=== PATIENT | female | born 1950 | race Caucasian/White ===

== ENCOUNTER 2017-05-10 15:28 | Emergency (ER) | payer SELFPAY ==
[2017-05-10 16:01] VITALS: BP 148/52
[2017-05-10] MEDS ORDERED: Naproxen TAB* 250 MG PO ONE (17:21)
--- NOTE | 2017-05-10 17:21 | RAD ---
Indication: RIGHT knee swelling and pain after trauma. Impacted the anterior knee sustained in fall. Pain behind the patella. Comparison: None. Technique: RIGHT knee: AP, tunnel, lateral, sunrise views. Report: Small suprapatellar joint effusion. No cortical disruption or suspicious trabecular irregularity to suggest fracture. Reference the AP view there is mild lateral joint space narrowing and subchondral sclerosis and cystic change at the lateral femoral condyle. Hypertrophic bone formation at the peripheral margin of the junction of the lateral metaphysis and lateral condyle is suspicious for sequela of previous lateral collateral ligament injury. Mild osteophytosis. Mild nonfocal soft tissue edema. IMPRESSION: Small joint effusion. No radiographic evidence for fracture. Kellgren and Jama grade 2 osteoarthritis most prominent at the lateral joint compartment.
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
== END 2017-05-10 18:02 | disposition home or self-care (01) ==
LOC: UCEAST 15:28
DX: M17.11 Unilateral primary osteoarthritis, right knee (principal); W10.9XXA Fall (on) (from) unspecified stairs and steps, initial encounter; Y93.9 Activity, unspecified; Y92.9 Unspecified place or not applicable; I10 Essential (primary) hypertension; M25.461 Effusion, right knee; E78.5 Hyperlipidemia, unspecified; F17.210 Nicotine dependence, cigarettes, uncomplicated
CPT/HCPCS: 99213; A9270-GY; G0463

== ENCOUNTER 2017-11-07 13:03 | Day surgery (SDC) | payer MEDICARE, OTHER ==
[~2017-11-07 13:03] MED LIST: Buffered Lidocaine 0.9% SYRIN* 5 ML/SYR SYRINGE INTRADERM ONE
[2017-11-07] MEDS ORDERED: ceFAZolin 2 GM PREMIX (*) 2 GM/50 ML BAG IVPB ONE (13:08)
[2017-11-07] MEDS ORDERED: Ropivacaine* 2 MG/ML 20 ML VIAL (0.2%) ONE (13:35)
[2017-11-07] MEDS ORDERED: Propofol* 10 MG/ML 20 ML BTL IV PUSH ONE (13:39)
[2017-11-07] MEDS ORDERED: Midazolam* 1 MG/ML 2 ML VIAL (2 MG) ONE ×2 (13:46→13:52)
[2017-11-07] MEDS ORDERED: Naloxone* 0.4 MG/ML 1 ML VIAL IV PRN (14:12)
[2017-11-07 14:58] VITALS: BP 149/85
--- NOTE | 2017-11-08 21:49 | OP ---
DATE OF OPERATION: 11/07/17 - [facility] DATE OF : 48 SURGEON: Joaquim Al MD MICROARRAY SPECIALIST: ANESTHESIOLOGIST: Dr. Johnson. ANESTHESIA: Local MAC. PRE-OP DIAGNOSIS: Symptomatic hardware right thumb. POST-OP DIAGNOSIS: Symptomatic hardware right thumb. OPERATIVE PROCEDURE: Removal of Synthes 3.0 cannulated screw right thumb with excision of adjacent bone spur. INDICATIONS: Lesli has very prominent and symptomatic right dorsal thumb screw where she had a prior MP joint fusion, it is quite symptomatic. She wanted to have the screw excised. ESTIMATED BLOOD LOSS: 2 mL. COMPLICATIONS: None. FINDINGS: See above and below. DESCRIPTION OF PROCEDURE: Lesli was seen in the preoperative holding area. The correct side, site, and procedure were identified. We came back to the operating room where the arm was prepped and draped in the usual fashion and the time out was performed. The arm was exsanguinated with Esmarch and the tourniquet inflated to 250 mmHg. I reopened her prior longitudinal incision over the dorsum of the thumb. Full thickness flaps were raised off the extensor tendon paratenon. The screw was identified. Soft tissue screw was released and then the screw was removed in standard fashion. No washer was present. There was a bone spur just adjacent where the screw was that was removed with a rongeur until I had nice smooth bony surface. I then irrigated out the wound. The skin was closed with 4- 0 nylon suture. The wound was dressed with sterile dressing. Tourniquet was deflated. She was taken to the recovery room in stable condition. [id number]/[facility] #: [id number] [facility] CENTERAdina
== END 2017-11-07 15:26 | disposition home or self-care (01) ==
LOC: OR 13:03
PROVIDERS: ATTEND Orthopaedic Surgery Hand Surgery
DX: T84.84XA Pain due to internal orthopedic prosthetic devices, implants and grafts, initial encounter (principal); J44.9 Chronic obstructive pulmonary disease, unspecified; E78.5 Hyperlipidemia, unspecified; I10 Essential (primary) hypertension; Y83.1 Surgical operation with implant of artificial internal device as the cause of abnormal reaction of the patient, or of later complication, without mention of misadventure at the time of the procedure; E03.9 Hypothyroidism, unspecified; Z87.891 Personal history of nicotine dependence
CPT/HCPCS: 88300; J0690; J2250; J2704; J2795

== ENCOUNTER 2019-03-09 10:07 | Emergency (ER) | payer MEDICARE ==
[2019-03-09] MEDS ORDERED: NS 0.9% 1000 ML** 1,000 ML IV ONE (10:24)
[2019-03-09] MEDS ORDERED: Albuterol 2.5 MG/3 ML NEB.SOL* (0.083%) INH ONE (10:24)
[2019-03-09] MEDS ORDERED: methylPREDNISolone 125 MG* 2 ML VIAL IV ONE (10:24)
[2019-03-09 10:45] LABS: Influenza A Molecular NEGATIVE (Negative); Influenza B Molecular NEGATIVE (Negative)
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
[2019-03-09 12:56] VITALS: BP 147/88
== END 2019-03-09 13:35 | disposition home or self-care (01) ==
LOC: UCEAST 10:07
DX: J44.1 Chronic obstructive pulmonary disease with (acute) exacerbation (principal); I10 Essential (primary) hypertension
CPT/HCPCS: 71046; 96360; 96376; 99212; G0463; J2930